=== PATIENT | female | born 1970 | race Caucasian/White ===

== ENCOUNTER 2017-08-19 09:50 | Emergency (ER) | payer SELFPAY ==
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
[2017-08-19 11:29] LABS: Hematocrit 37 % (35-47); Hemoglobin 12.1 g/dl (12.0-16.0); Mean Corpuscular HGB Conc 33 g/dl (31-36); Mean Corpuscular Hemoglobin 28 pg (27-31); Mean Corpuscular Volume 83 fL (80-97); Mean Platelet Volume 7 um3 (7.4-10.4); Platelet Count 319 10^3/ul (150-450); Red Blood Count 4.39 10^6/ul (4.0-5.4); Red Cell Distribution Width 14 % (10.5-15); White Blood Count 7.9 10^3/ul (3.5-10.8)
[2017-08-19] MEDS ORDERED: HYDROcodone/ACETAMIN 5-325 MG* 1 TAB PO ONE (11:38)
[2017-08-19 11:48] LABS: EGFR Non-African American 69.8 (>60)
[2017-08-19] MEDS ORDERED: Iohexol 300* (CONTRAST) 10 ML SDV IV ONE (12:07)
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
[2017-08-19 13:22] VITALS: BP 109/63
== END 2017-08-19 13:22 | disposition home or self-care (01) ==
LOC: ED 09:50
DX: R10.9 Unspecified abdominal pain (principal); T14.8XXA Other injury of unspecified body region, initial encounter; V58.5XXA Driver of pick-up truck or van injured in noncollision transport accident in traffic accident, initial encounter; Y92.410 Unspecified street and highway as the place of occurrence of the external cause
CPT/HCPCS: 36415; 74177; 80053; 84702; 85027; 99282; Q9967